=== PATIENT | male | born 1975 | race Caucasian/White ===

== ENCOUNTER 2017-08-15 20:09 | Emergency (ER) | payer SELFPAY ==
[~2017-08-15] VITALS: Ht 177.8 cm; Wt 70.4 kg
[~2017-08-15 20:09] MED LIST: ADVIL200 M1 PO; ADVIL200 MG PO; AMOXICILLIN500 M1 PO; BACTRIM,SEPT1 TABLET PO; MOTRIN800 MG PO; TYLENOL325 M1 PO; ULTRAM50 MG PO
[2017-08-15 21:08] LABS: ADD MIUA? NO; BILIRUBIN NEGATIVE; BLOOD NEGATIVE; COLOR YELLOW ((YELLOW)); GLUCOSE (STRIP) NEGATIVE; KETONES NEGATIVE; LEUKOCYTES NEGATIVE; NITRITE NEGATIVE; PROTEIN (STRIP) NEGATIVE; SPECIFIC GRAVITY 1.008 (1.000-1.030); UCUL ADDED? NO; UROBILINOGEN 0.2 MG/DL (0.2-1.0)
[2017-08-15 22:28] VITALS: BP 139/79
[2017-08-17 13:32] LABS: CHLAMYDIA TRACHOMATIS NEGATIVE; NEISSERIA GONORRHOEAE NEGATIVE
== END 2017-08-15 22:29 | disposition home or self-care (01) ==
LOC: EME 20:09
PROVIDERS: Physician Assistant
DX: N34.2 Other urethritis (principal); F17.200 Nicotine dependence, unspecified, uncomplicated; Z87.442 Personal history of urinary calculi; F32.9 Major depressive disorder, single episode, unspecified; F90.9 Attention-deficit hyperactivity disorder, unspecified type; F43.10 Post-traumatic stress disorder, unspecified
CPT/HCPCS: 81003; 87491; 87591; 99281; 99283; J0696